=== PATIENT | female | born 1950 | race Caucasian/White ===

== ENCOUNTER 2021-07-28 06:16 | Day surgery (SDC) | payer MEDICARE, OTHER ==
[~2021-07-28] VITALS: Ht 162.6 cm; Wt 81.8 kg
[~2021-07-28 06:16] MED LIST: FENO160T12 PO; HYDR25TA4 PO; IRBE150T23 PO; LORA-1025 PO; MAGN400T39 PO; MONT10TA32 PO; MTP25TSR PO; TURM500C4 PO
[2021-07-28] MEDS ORDERED: MOXIFLOXACIN OPHTH SOLN 5 MG/ML 0.3 ML SYRINGE OP ONE (06:30)
[2021-07-28] MEDS ORDERED: TIMOLOL MALEATE 0.5% 5 ML (TIMOPTIC) BTL OU PRN (06:30)
[2021-07-28] MEDS ORDERED: POVIDONE (BETADINE) OPHTH SOLN 5% 30 ML OP ONE (06:30)
[2021-07-28] MEDS ORDERED: LIDOCAINE PF 1% 2 ML VIAL IR PRN (06:30)
[2021-07-28] MEDS: TETRACAINE 0.5% OPHTH SOLN 4 ML BTL (SINGLE DOSE ONLY) OU PRN ×4 (06:39→06:55)
[2021-07-28 06:45] VITALS: BP 167/85
[2021-07-28] MEDS: TROPICAMIDE 1% OPH SOLN (MYDRIACYL) 15 ML BTL OP SCH ×3 (06:45→06:55)
[2021-07-28] MEDS: PHENYLEPHRINE 10% OPHTH (NEO-SYN) 5 ML BTL OU SCH ×3 (06:45→06:55)
[2021-07-28] MEDS ORDERED: MIDAZOLAM 2 MG/2 ML (VERSED) VIAL ONE (07:18)
--- NOTE | 2021-07-28 07:28 | Ophthalmologist Pre-Op Note ---
Pre-Operative Progress Note H&P Reviewed The H&P was reviewed, patient examined and no changes noted. Date H&P Reviewed: Jul 28, 2021 Time H&P Reviewed: 07:26 Pre-Op Dx Cataract, Right Eye SAIMA FELDER MD Jul 28, 2021 07:28
--- NOTE | 2021-07-28 07:52 | Ophthalmology Operative Report ---
Cataract removal/placement IOL PREOPERATIVE DIAGNOSIS: Cataract Right Eye POSTOPERATIVE DIAGNOSIS: Cataract Right Eye PROCEDURE: Cataract removal and placement of posterior chamber implant, right eye SURGEON: Alejandro Felder ANESTHESIA: Topical with sedation COMPLICATIONS: None ESTIMATED BLOOD LOSS: Minimal DESCRIPTION OF PROCEDURE: After proper informed consent was obtained, the patient, a 71 female, was taken to the Operating Room and the right eye was anesthetized with tetracaine. The right eye was then prepped and draped in the usual manner. A wire lid speculum was placed. A paracentesis was made at the left hand position. Preservative free lidocaine was injected into the anterior chamber followed by viscoelastic. A clear corneal incision was made in the temporal position. A capsulorrhexis was preformed and the central nuclear and cortical material were removed. The posterior capsule was polished and Martin 31.0 [id number] IOL was placed into the capsular bag. The residual viscoelastic was aspirated and balanced saline solution was injected into the anterior chamber. Moxifloxacin was injected into the anterior chamber. The wound was checked and found to be water tight. The patient tolerated the procedure well without complications. ALEJANDRO FELDER MD Jul 28, 2021 07:52
[2021-07-28 07:53] VITALS: BP 159/83
--- NOTE | 2021-07-28 13:50 | Anesthesia-General Post-Op ---
MAC Patient Condition Mental Status/LOC: Same as Preop Cardiovascular: Satisfactory Nausea/Vomiting: Absent Respiratory: Satisfactory Pain: Controlled Complications: Absent Post Op Complications Complications None Follow Up Care/Instructions Patient Instructions None needed. Anesthesiology Discharge Order Discharge Order Patient is doing well, no complaints, stable vital signs, no apparent adverse anesthesia problems. No complications reported per nursing. HAYLIE HOANG CRNA Jul 28, 2021 13:50
== END 2021-07-28 07:55 ==
LOC: SDC 06:16
PROVIDERS: ATTEND Specialist
DX: H25.11 Age-related nuclear cataract, right eye (principal); I10 Essential (primary) hypertension; Z79.899 Other long term (current) drug therapy
CPT/HCPCS: 66984; V2632

== ENCOUNTER 2021-08-28 05:53 | Outpatient (CLI) | payer MEDICARE, OTHER ==
[~2021-08-28] VITALS: Ht 162.6 cm; Wt 81.8 kg
== END 2021-08-29 12:51 | disposition home or self-care (01) ==
LOC: PREOP 05:53
PROVIDERS: ATTEND Specialist
DX: Z01.818 Encounter for other preprocedural examination (principal)

== ENCOUNTER 2021-09-01 07:44 | Day surgery (SDC) | payer MEDICARE, OTHER ==
[~2021-09-01] VITALS: Ht 162 cm; Wt 81.8 kg
[2021-09-01] MEDS ORDERED: MIDAZOLAM 2 MG/2 ML (VERSED) VIAL ONE (07:47)
[2021-09-01] MEDS: TETRACAINE 0.5% OPHTH SOLN 4 ML BTL (SINGLE DOSE ONLY) OU PRN ×4 (08:14→08:34)
[2021-09-01] MEDS ORDERED: POVIDONE (BETADINE) OPHTH SOLN 5% 30 ML OP ONE (08:15)
[2021-09-01] MEDS ORDERED: MOXIFLOXACIN OPHTH SOLN 5 MG/ML 0.3 ML SYRINGE OP ONE (08:15)
[2021-09-01] MEDS ORDERED: LIDOCAINE PF 1% 2 ML VIAL IR PRN (08:15)
[2021-09-01] MEDS ORDERED: TIMOLOL MALEATE 0.5% 5 ML (TIMOPTIC) BTL OU PRN (08:15)
[2021-09-01] MEDS: PHENYLEPHRINE 10% OPHTH (NEO-SYN) 5 ML BTL OU SCH ×3 (08:20→08:34)
[2021-09-01] MEDS: TROPICAMIDE 1% OPH SOLN (MYDRIACYL) 15 ML BTL OP SCH ×3 (08:20→08:34)
[2021-09-01 08:30] VITALS: BP 166/92
--- NOTE | 2021-09-01 09:04 | Ophthalmologist Pre-Op Note ---
Pre-Operative Progress Note H&P Reviewed The H&P was reviewed, patient examined and no changes noted. Date H&P Reviewed: Sep 01, 2021 Time H&P Reviewed: 09:04 Pre-Op Dx Cataract, Left Eye SAIMA FELDER MD Sep 01, 2021 09:04
--- NOTE | 2021-09-01 09:30 | Ophthalmology Operative Report ---
Cataract removal/placement IOL PREOPERATIVE DIAGNOSIS: Cataract Left Eye POSTOPERATIVE DIAGNOSIS: Cataract Left Eye PROCEDURE: Cataract removal and placement of posterior chamber implant, left eye SURGEON: Alejandro Felder ANESTHESIA: Topical with sedation COMPLICATIONS: None ESTIMATED BLOOD LOSS: Minimal DESCRIPTION OF PROCEDURE: After proper informed consent was obtained, the patient, a 71 female, was taken to the Operating Room and the left eye was anesthetized with tetracaine. The left eye was then prepped and draped in the usual manner. A wire lid speculum was placed. A paracentesis was made at the left hand position. Preservative free lidocaine was injected into the anterior chamber followed by viscoelastic. A clear corneal incision was made in the temporal position. A capsulorrhexis was preformed and the central nuclear and cortical material were removed. The posterior capsule was polished and an Martin 22.0 [id number] was placed into the capsular bag. The residual viscoelastic was aspirated and balanced saline solution was injected into the anterior chamber. Moxifloxacin was injected into the anterior chamber. The wound was checked and found to be water tight. The patient tolerated the procedure well without complications. ALEJANDRO FELDER MD Sep 01, 2021 09:30
[2021-09-01 09:37] VITALS: BP 156/91
--- NOTE | 2021-09-01 12:24 | Anesthesia-General Post-Op ---
MAC Patient Condition Mental Status/LOC: Same as Preop Cardiovascular: Satisfactory Nausea/Vomiting: Absent Respiratory: Satisfactory Pain: Controlled Complications: Absent Post Op Complications Complications None Follow Up Care/Instructions Patient Instructions None needed. Anesthesiology Discharge Order Discharge Order Patient is doing well, no complaints, stable vital signs, no apparent adverse anesthesia problems. No complications reported per nursing. RENETTA AREVALO CRNA Sep 01, 2021 12:24
== END 2021-09-01 09:38 ==
LOC: SDC 07:44
PROVIDERS: ATTEND Specialist
DX: H25.12 Age-related nuclear cataract, left eye (principal); I10 Essential (primary) hypertension; Z79.899 Other long term (current) drug therapy
CPT/HCPCS: 66984; V2632

== ENCOUNTER 2023-02-28 21:25 | Emergency (ER) | payer MEDICARE, OTHER ==
[~2023-02-28 21:25] MED LIST changes: +MONT-40 PO; -MONT10TA32 PO
--- NOTE | 2023-02-28 21:55 | ED Cardiac General ---
History of Present Illness General Chief Complaint: Chest Pain Stated Complaint: UPPER BACK/SHOULDER PAIN - CHEST STINGING Source: patient Exam Limitations: no limitations History of Present Illness Date Seen by Provider: February 28, 2023 Time Seen by Provider: 21:42 Initial Comments Patient is a 73yo female who presents to the ER with a complaint of mid thoracic back pain and left shoulder pain onset last Saturday. SHe states that it "comes and goes" in intensity but never quite goes all the way away. She feels extremely tired/fatigued. Not really SOB. No nausea, no sweating. Exertion does not seem to make it worse. No history of known CAD. Not a diabetic. Not a smoker. No family history of CAD. No recent travel or prolonged immobility. No fevers, chills, cough or congestion. Skates she has had similar in the past but was told it was "constipation". So she did a "bowel cleanout" last night and this morning and when the pain did not improve, decided to come to the ER. She points to the shoulder and shoulder blade as a location of pain. ON palpation It seems I can reproduce some discomfort just medial and superior to the scapula on the left. Timing/Duration: 5-6 days Severity: moderate Location: shoulder, other (mid back between shoulder blades) NTG SL SKI TOP TRIMMER: No ASA po SKI TOP TRIMMER: No Associated Systoms: Malaise Allergies and Home Medications Allergies Coded Allergies: Penicillins (Verified Allergy, Unknown, Rash, 07/25/21) Sulfa (Sulfonamide Antibiotics) (Verified Allergy, Unknown, Rash, 07/25/21) Patient Home Medication List Home Medication List Reviewed: Yes Fenofibrate (Fenofibrate) 160 Mg Tablet, 160 MG PO HS, (Reported) Entered as Reported by: KRYSTIN ELDRIDGE on 07/25/21924 Hydrochlorothiazide (Hydrochlorothiazide) 25 Mg Tablet, 25 MG PO DAILY, (Reported) Entered as Reported by: KRYSTIN ELDRIDGE on 07/25/21924 Irbesartan (Irbesartan) 150 Mg Tablet, 150 MG PO DAILY, (Reported) Entered as Reported by: KRYSTIN ELDRIDGE on 07/25/21924 Loratadine (Allergy Relief) 10 Mg Tablet, 10 MG PO DAILY, (Reported) Entered as Reported by: KRYSTIN ELDRIDGE on 07/25/21924 Magnesium Oxide (Magnesium) 400 Mg Tablet, 400 MG PO DAILY, (Reported) Entered as Reported by: KRYSTIN ELDRIDGE on 07/25/21924 Metoprolol Succinate (Metoprolol Succinate) 25 Mg Tab.er.24h, 25 MG PO HS, (Reported) Entered as Reported by: KRYSTIN ELDRIDGE on 07/25/21924 Montelukast Sodium (Montelukast Sodium) 10 Mg Tablet, 10 MG PO HS, (Reported) Entered as Reported by: KRYSTIN ELDRIDGE on 07/25/21924 Turmeric/Turmeric Root Extract (Turmeric 500 mg Capsule) 1 Each Capsule, 1 EACH PO DAILY, (Reported) Entered as Reported by: KRYSTIN ELDRIDGE on 07/25/21924 Review of Systems Review of Systems Constitutional: see HPI, malaise (fatigue) EENTM: No Symptoms Reported Respiratory: No Symptoms Reported Cardiovascular: No Symptoms Reported Gastrointestinal: No Symptoms Reported Genitourinary: No Symptoms Reported Musculoskeletal: joint pain (left shoulder) Skin: no symptoms reported Psychiatric/Neurological: Other (fatigue) Physical Exam Vital Signs Vital Signs - First Documented 02/28/23 21:28 Temp 37.0 Pulse 65 Resp 14 B/P (MAP) 148/79 (102) Pulse Ox 98 O2 Delivery Room Air Capillary Refill : Height, Weight, BMI Height: '" Weight: lbs. oz. kg; BMI Method: General Appearance: No Apparent Distress, WD/WN HEENT: PERRL/EOMI Neck: Normal Inspection, Supple Respiratory: Lungs Clear, Normal Breath Sounds, No Accessory Muscle Use, No Respiratory Distress Cardiovascular: Regular Rate, Rhythm, Normal Peripheral Pulses Gastrointestinal: Normal Bowel Sounds, Non Tender, Soft Extremity: Normal Capillary Refill, Normal Inspection, Normal Range of Motion, Non Tender, No Calf Tenderness, No Pedal Edema, Other (tenderness to palpation to the medial left scapula. no midline spine tenderness; no crepitance in the left shoulder.) Neurologic/Psychiatric: Alert, Oriented x3, No Motor/Sensory Deficits, Normal Mood/Affect, chip mixer II-XII Norm as Tested Skin: Normal Color, Warm/Dry Progress/Results/Core Measures Results/Orders Lab Results Laboratory Tests Test 02/28/23 21:34 03/01/23 00:01 Range/Units White Blood Count 9.2 4.3-11.0 10^3/uL Red Blood Count 3.54 L 3.80-5.11 10^6/uL Hemoglobin 10.0 L 11.5-16.0 g/dL Hematocrit 29 L 35-52 % Mean Corpuscular Volume 83 80-99 fL Mean Corpuscular Hemoglobin 28 25-34 pg Mean Corpuscular Hemoglobin Concent 34 32-36 g/dL Red Cell Distribution Width 14.1 10.0-14.5 % Platelet Count 271 130-400 10^3/uL Mean Platelet Volume 11.2 9.0-12.2 fL Immature Granulocyte % (Auto) 0 % Neutrophils (%) (Auto) 63 42-75 % Lymphocytes (%) (Auto) 26 12-44 % Monocytes (%) (Auto) 9 0-12 % Eosinophils (%) (Auto) 1 0-10 % Basophils (%) (Auto) 1 0-10 % Neutrophils # (Auto) 5.8 1.8-7.8 10^3/uL Lymphocytes # (Auto) 2.4 1.0-4.0 10^3/uL Monocytes # (Auto) 0.8 0.0-1.0 10^3/uL Eosinophils # (Auto) 0.1 0.0-0.3 10^3/uL Basophils # (Auto) 0.1 0.0-0.1 10^3/uL Immature Granulocyte # (Auto) 0.0 0.0-0.1 10^3/uL Sodium Level 132 L 135-145 MMOL/L Potassium Level 3.3 L 3.6-5.0 MMOL/L Chloride Level 94 L 98-107 MMOL/L Carbon Dioxide Level 23 21-32 MMOL/L Anion Gap 15 H 5-14 MMOL/L Blood Urea Nitrogen 41 H 7-18 MG/DL Creatinine 1.22 0.60-1.30 MG/DL Estimat Glomerular Filtration Rate 47 BUN/Creatinine Ratio 34 Glucose Level 116 H 70-105 MG/DL Calcium Level 9.9 8.5-10.1 MG/DL Troponin I 0.031 H < 0.028 <0.028 NG/ML My Orders Orders - LAZ CHURCH MD Ekg Tracing (02/28/23 21:39) Ed Iv/Invasive Line Start (02/28/23 21:54) Basic Metabolic Panel (02/28/23 21:54) Cbc With Automated Diff (02/28/23 21:54) Troponin I [place] (02/28/23 21:54) Chest 1 View, Ap/Pa Only (02/28/23 21:54) Orphenadrine Inj (Ed Only) (Norflex Inje (02/28/23 22:00) Aspirin Chewable Tablet (Baby Aspirin Ch (02/28/23 23:00) Troponin I [place] (03/01/23 00:01) Ketorolac Injection (Toradol Injection) (03/01/23 00:45) Lidocaine 4% Patch (Salonpas 4% Patch) (03/01/23 00:34) Medications Given in ED Current Medications Medications Dose Ordered Sig/Britt Route Start Time Stop Time Status Last Admin Dose Admin Aspirin 324 mg ONCE ONCE PO 02/28/23 23:00 02/28/23 23:01 DC 02/28/23 23:02 324 MG Ketorolac Tromethamine 15 mg ONCE ONCE IVP 03/01/23 00:45 03/01/23 00:46 DC 03/01/23 00:39 15 MG Orphenadrine Citrate 60 mg ONCE ONCE IV 02/28/23 22:00 02/28/23 22:01 DC 02/28/23 22:00 60 MG Vital Signs/I&O 02/28/23 03/01/23 21:28 00:47 Temp 37.0 Pulse 65 66 Resp 14 B/P (MAP) 148/79 (102) 142/77 Pulse Ox 98 97 O2 Delivery Room Air Room Air Progress Progress Note #1: Time: 22:57 Progress Note Patient re-evaluated, still having discomfort. Norflex did not really help much. Will give 325mg aspirin and re-check troponin in 1 hour. Progress Note #2: Time: 00:35 Progress Note Patient seen and evaluated by me. Evaluation today includes physical exam, CBC, basic metabolic panel, serum troponin x2, EKG and single view chest x-ray pertinent physical exam findings well-developed well-nourished female who appears slightly pale. Heart is regular, lungs are clear. Patient has tenderness on physical exam just posterior to the left shoulder medial to the left scapula. No midline bony spine tenderness. Full range of motion of the left shoulder. Nontender chest wall. Abdomen soft, nontender, no peritoneal findings. No lower extremity edema. Moves all extremities equally. No focal neurologic deficits. Differential diagnosis based on history and physical exam, bursitis/arthritis of the left shoulder, muscle spasm, atypical presentation of ACS. Labs, EKG and chest x-ray independently evaluated by me. EKG shows normal sinus rhythm without ectopy or ST segment change. Chest x-ray normal mediastinum without widening. No infiltrates or effusion. No cardiomegaly. CBC shows a white count of 9.2 with a hemoglobin of 10, hematocrit of 29, platelets of 371. Basic metabolic panel shows a sodium of 132, potassium of 3.2, BUN of 41 creatinine of 1.22 blood sugar 116. Initial troponin was measured at 0.031. As the patient's history and physical exam did not appear consistent with acute coronary syndrome it was elected to hold the patient in the emergency room to repeat her serum troponin in 2 hours. She was continuously monitored and given 324 mg of baby aspirin. She was also treated with Norflex and Toradol. Patient's repeat troponin was undetectable, less than 0.028. Patient had some relief of symptoms. Recommended [id number] lidocaine patches, Tylenol. Follow-up with primary care. Patient is comfortable with the plan of care. No concerning findings for acute cardiac event. She is given return precautions and both verbal and written format. She has a family member at the bedside who is also also comfortable with plan of care. All questions are sought and answered. Initial ECG Impression Date: February 28, 2023 Initial ECG Impression Time: 22:20 Initial ECG Rate: 68 Initial ECG Rhythm: Normal Sinus Initial ECG Intervals: Normal Initial ECG Impression: Normal Diagnostic Imaging Diagonstic Imaging: Xray Plain Films/CT/US/NM/MRI: chest Comments Chest xray - independent interpretation by me - no infiltrate or effusions. normal mediastinum Departure Impression Primary Impression: Musculoskeletal pain Disposition: 01 HOME, SELF-CARE Condition: Stable Departure-Patient Inst. Decision time for Depature: 00:38 Referrals: IVY BOWERS DO (PCP/Family) Primary Care Physician Patient Instructions: Acute Pain, Adult (DC) Add. Discharge Instructions: You can continue the lidocaine patches to the sore area of your back - these are available at the pharmacy without a prescription. Please follow packaging instructions. You can also alternate heat and ice to the sore areas. Extra strength Tylenol, 2 tablets every 6 hours as well as needed for pain. Your heart evaluation today is reassuring, however, you still need to follow up with Dr Bowers's office. Please call for a follow up appointment. Return to the Emergency Department for re-evaluation for any new, concerning or emergent complaints. Copy Copies To 1: IVY BOWERS KATHRYN M MD February 28, 2023 21:55
[2023-02-28] MEDS ORDERED: ORPHENADRINE 60 MG/2 ML (NORFLEX) AMP (ED ONLY) IV ONE (22:00)
[2023-02-28 22:04] LABS: BASOPHILS # (AUTO) 0.1 10^3/uL (0.0-0.1); BASOPHILS % (AUTO) 1 % (0-10); EOSINOPHILS # (AUTO) 0.1 10^3/uL (0.0-0.3); EOSINOPHILS % (AUTO) 1 % (0-10); HEMATOCRIT 29 % (35-52); LYMPHOCYTES # (AUTO) 2.4 10^3/uL (1.0-4.0); LYMPHOCYTES % (AUTO) 26 % (12-44); MEAN CORPUSCULAR HEMOGLOBIN 28 pg (25-34); MEAN CORPUSCULAR HGB CONC 34 g/dL (32-36); MEAN CORPUSCULAR VOLUME 83 fL (80-99); MEAN PLATELET VOLUME 11.2 fL (9.0-12.2); MONOCYTES # (AUTO) 0.8 10^3/uL (0.0-1.0); MONOCYTES % (AUTO) 9 % (0-12); NEUTROPHILS # (AUTO) 5.8 10^3/uL (1.8-7.8); NEUTROPHILS % (AUTO) 63 % (42-75); PLATELET COUNT 271 10^3/uL (130-400); WHITE BLOOD COUNT 9.2 10^3/uL (4.3-11.0)
[2023-02-28 22:08] LABS: POTASSIUM 3.3 MMOL/L (3.6-5.0)
[2023-02-28 22:09] LABS: CALCIUM 9.9 MG/DL (8.5-10.1)
[2023-02-28 22:14] LABS: CREATININE SERUM 1.22 MG/DL (0.60-1.30)
[2023-02-28] MEDS ORDERED: ASPIRIN 81 MG CHEW (CHILDREN'S ASA) PO ONE (23:00)
[2023-03-01] MEDS ORDERED: LIDOCAINE 4% (SALONPAS) PATCH TOP STA (00:34)
[2023-03-01] MEDS ORDERED: KETOROLAC 15 MG/ML VIAL IVP ONE (00:45)
[2023-03-01 00:47] VITALS: BP 142/77
--- NOTE | 2023-03-01 04:54 | Diagnostic Imaging Report ---
INDICATION: Chest pain AP view of the chest is obtained. COMPARISON: No previous study is available for comparison at this time. FINDINGS: Heart size and pulmonary vasculature are within normal limits, and the lungs are clear, bilaterally. IMPRESSION: Unremarkable chest. Dictated by: Dictated on workstation # [id number]
== END 2023-03-01 00:47 | disposition home or self-care (01) ==
LOC: EDUNIT# 21:25 → ER 21:26
DX: M54.6 Pain in thoracic spine (principal); M25.512 Pain in left shoulder; Z28.310 Unvaccinated for COVID-19
CPT/HCPCS: 36415; 71045; 80048; 84484; 85025; 93005